=== PATIENT | female | born 1940 | race Caucasian/White ===

== ENCOUNTER 2018-01-01 09:50 | Inpatient (IN) ==
[2017-12-28 15:53] LABS: Appearance,Urine CLEAR; Bilirubin,Urine NEG (NEG); Color,Urine YELLOW; Glucose,Urine (UA) NEGATIVE (NEG); Leukocyte Esterase,Urine NEG /uL (NEG); Protein,Urine NEG (NEG); Urine Blood NEG mg/dL (<0.03); Urobilinogen,Urine NEG (NEG)
[2017-12-28 16:26] LABS: Basophils # (Auto) 0.1 K/mcL (0.0-0.3); Basophils % (Auto) 0.7 % (0.0-2.0); Eosinophils # (Auto) 0.4 K/mcL (0.0-0.7); Eosinophils % (Auto) 4.6 % (0.0-7.0); Granulocytes % (Auto) 56.1 % (38.0-78.0); Lymphocytes # (Auto) 2.2 K/mcL (1.5-4.8); Mean Cell Volume 90.3 fL (80.0-100.0); Mean Corpuscular HGB Conc 33.7 g/dL (31.0-36.0); Mean Corpuscular Hemoglobin 30.4 pg (26.0-34.0); Monocytes # (Auto) 1.1 K/mcL (0.1-0.9); Monocytes % (Auto) 12.6 % (1.0-12.0); Platelet Count 272 K/mcL (140-440); RBC 5.06 M/mcL (4.00-5.20); Red Cell Distribution Width 13.5 % (11.5-14.5)
[2017-12-28 16:33] LABS: Blood Urea Nitrogen 21 mg/dl (8-23)
[~2018-01-01 09:50] MED LIST: ACETAMINOPHEN 500 MG TABLET PO SCH; CELECOXIB 200 MG CAPSULE PO SCH; PREGABALIN 75 MG CAPSULE PO SCH; ceFAZolin 1 GM VIAL IV SCH; oxyCODONE 10 MG TAB.ER.12H PO SCH
[2018-01-01] MEDS ORDERED: NEOSTIGMINE 1 MG/ML VIAL IV ONE (13:50)
[2018-01-01] MEDS ORDERED: PROPOFOL 200 MG/20 ML VIAL IV ONE (13:50)
[2018-01-01] MEDS ORDERED: DEXAMETHASONE 10 MG/ML VIAL IV ONE (13:50)
[2018-01-01] MEDS ORDERED: ROCURONIUM 10 MG/ML ML IV ONE (13:50)
[2018-01-01] MEDS ORDERED: PHENYLEPHRINE 10 MG/ML VIAL IV ONE (13:50)
[2018-01-01] MEDS ORDERED: TRANEXAMIC ACID 1,000 MG/10 ML VIAL IV ONE ×3 (13:50→15:45)
[2018-01-01] MEDS ORDERED: MIDAZOLAM 5 MG/5 ML VIAL IV ONE (13:50)
[2018-01-01] MEDS ORDERED: KETAMINE 100 MG/ML ML IV ONE (13:50)
[2018-01-01] MEDS ORDERED: LIDOCAINE HCL/PF 100 MG/5 ML SYRINGE IV ONE (13:50)
[2018-01-01] MEDS ORDERED: fentaNYL 100 MCG/2 ML VIAL IV ONE (13:50)
[2018-01-01] MEDS ORDERED: GLYCOPYRROLATE 0.2 MG/ML VIAL IV ONE (13:50)
[2018-01-01] MEDS ORDERED: BUPIVACAINE W/EPI 0.5% 50 ML VIAL IJ ONE (13:50)
[2018-01-01] MEDS ORDERED: GENTAMICIN SULFATE 800 MG/20 ML VIAL IR ONE (14:11)
[2018-01-01] MEDS ORDERED: FLUMAZENIL 0.1 MG/ML ML IV PRN (14:58)
[2018-01-01] MEDS ORDERED: LACTATED RINGERS 250 ML IV PRN (14:58)
[2018-01-01] MEDS ORDERED: IPRATROPIUM/ALBUTEROL 3 ML AMPUL.NEB NEB PRN (14:58)
[2018-01-01] MEDS ORDERED: BENZOCAINE/MENTHOL 1 LOZENGE PO PRN ×2 (14:58→15:10)
[2018-01-01] MEDS ORDERED: NALOXONE HCL 0.4 MG/ML VIAL IV PRN (14:58)
[2018-01-01] MEDS ORDERED: ONDANSETRON 4 MG/2 ML VIAL IV PRN ×2 (14:58→15:10)
[2018-01-01] MEDS ORDERED: PROMETHAZINE 25 MG/ML VIAL IV PRN (14:58)
[2018-01-01] MEDS ORDERED: MEPERIDINE 25 MG/ML SYRINGE IV PRN (14:58)
[2018-01-01] MEDS ORDERED: fentaNYL 100 MCG/2 ML VIAL IV PRN (14:58)
[2018-01-01] MEDS ORDERED: diphenhydrAMINE 50 MG/ML VIAL IV PRN (14:58)
[2018-01-01] MEDS ORDERED: LACTATED RINGERS 1,000 ML IV SCH (15:00)
[2018-01-01] MEDS ORDERED: MAGNESIUM HYDROXIDE 30 ML ORAL.SUSP PO PRN (15:10)
[2018-01-01] MEDS ORDERED: HYDROmorphone 2 MG/ML VIAL IV PRN (15:10)
[2018-01-01] MEDS ORDERED: KETOROLAC 30 MG/ML VIAL IV PRN (15:10)
[2018-01-01] MEDS ORDERED: POLYETHYLENE GLYCOL 3350 17 GM PACKET PO PRN (15:10)
[2018-01-01] MEDS ORDERED: FLEETS ADULT ENEMA PR PRN (15:10)
[2018-01-01] MEDS ORDERED: BISACODYL 10 MG SUPP.RECT PR PRN (15:10)
[2018-01-01] MEDS ORDERED: ACETAMINOPHEN 325 MG TABLET PO PRN (15:10)
[2018-01-01] MEDS ORDERED: ALBUTEROL SULFATE 1 PUFF INHALER INH PRN (15:14)
--- NOTE | 2018-01-01 15:18 | Brief Operative Note ---
Date of procedure: 01/01/18 Pre-op diagnosis: left shoulder djd rca Post-op diagnosis: same Procedure: left revers tsa and bicep tenodesis Grafts/Implants: Yes Anesthesia: LUIS FELIPE Surgeon: Patrick Hernandez Manager Completions: Jony Andino Estimated blood loss (cc): 100 Specimens Removed/Pathology: none sent Condition: stable Disposition: PACU
--- NOTE | 2018-01-01 16:03 | Operative Note ---
DATE OF OPERATION: 01/01/2018 PREOPERATIVE DIAGNOSES: Left shoulder rotator cuff arthropathy with severe arthritis of the left shoulder and biceps tendinosis. POSTOPERATIVE DIAGNOSES: Left shoulder rotator cuff arthropathy with severe arthritis of the left shoulder and biceps tendinosis. PROCEDURE: Left reverse total shoulder and biceps tenodesis. SURGEON: Patrick Hernandez M.D. INSURANCE PRODUCER: Jony Andino PA-C. ANESTHESIA: General LMA anesthesia. COMPLICATIONS: None. DESCRIPTION OF PROCEDURE: The patient was brought to the operating room and put to sleep with general LMA anesthesia. Once asleep, the patient had the left shoulder sterilely prepped and draped in the usual sterile fashion after confirming the operative site as the procedure and receiving preoperative antibiotics and tranexamic acid. The patient then had a deltopectoral approach performed. Once done, we then identified the glenohumeral joint, released the subscap and dislocated the humeral head. At this point, we released the remnants of the bicep tendon which was tenodesed to the pectoralis major. Once this was done, we then made our neck cut at 20 degrees of retroversion using the guide from [place]. Once done, I then removed the bony fragment, broached up to the size stem with a longer stem, and then subluxed the humerus posteriorly. We then placed retractors, reamed centrally after 360 degree capsulotomy and removing the labrum and biceps tendon remnant. We reamed up to a 29. We placed a 29 metaglene after reaming to the depth with good bone. A 36 mm central screw gave excellent purchase and then we placed a 36 mm central screw, a 36 superior screw, and a 36 inferior screw. Anteriorly we made a 26 mm screw. All had good purchase. We irrigated thoroughly. We placed a glenosphere with 3 mm of the eccentricity inferiorly and then the humerus was trialed with a standard poly. This seemed to fit a little tight. We countersunk the stem a little more, reamed, and this fit perfectly with 1 mm of play. We irrigated thoroughly, put into place the humeral component and poly. This was reduced easily and irrigated. We then closed the interval after making sure there was no bleeding. There was no cephalic vein bleeding. This was reduced. We then closed the deltopectoral interval with 2-0 Vicryl and closed the skin with 2-0 Vicryl and adhesive closure. A DonJoy sling was fitted and given to the patient. [facility] Job ID: [id number] Doc ID: [id number] Patrick Hernandez MD
--- NOTE | 2018-01-01 16:09 | XRay Report ---
CLINICAL INFORMATION: Postsurgical follow-up TECHNIQUE: AP and Y views of the left shoulder COMPARISON: None. FINDINGS: Status post left reverse shoulder arthroplasty. Alignment is anatomic. IMPRESSION: Status post reverse left shoulder arthroplasty Interpreted and Authenticated by: Rayshawn Joseph 01/01/18
[2018-01-01] MEDS ORDERED: TRANEXAMIC ACID 1,000 MG/10 ML VIAL IV SCH (16:15)
[2018-01-01] MEDS: 0.45 % SODIUM CHLORIDE 1,000 ML IV SCH (16:35)
[2018-01-01] MEDS ORDERED: SIMVASTATIN 10 MG TABLET PO SCH (21:00)
[2018-01-01] MEDS ORDERED: SENNOSIDES 1 TABLET PO SCH (21:00)
[2018-01-01] MEDS ORDERED: SULINDAC 200 MG TABLET PO SCH (21:00)
[2018-01-01] MEDS ORDERED: TEMAZEPAM 15 MG CAPSULE PO PRN (21:00)
[2018-01-01] MEDS: oxyCODONE/APAP 5/325MG TABLET PO PRN (21:12)
[2018-01-01] MEDS: ceFAZolin 1 GM VIAL IV SCH (21:13)
[2018-01-01] MEDS: DOCUSATE SODIUM 100 MG CAPSULE PO SCH (21:13)
[2018-01-01] MEDS: BUDESONIDE INH SCH (21:19)
[2018-01-01] MEDS: FORMOTEROL FUMARATE INH SCH (21:19)
[2018-01-01] MEDS: 0.9 % SODIUM CHLORIDE 10 ML SYRINGE IV SCH (22:02)
[2018-01-02] MEDS: oxyCODONE/APAP 5/325MG TABLET PO PRN ×2 (00:18→04:06)
[2018-01-02] MEDS: 0.45 % SODIUM CHLORIDE 1,000 ML IV SCH (02:21)
[2018-01-02] MEDS: 0.9 % SODIUM CHLORIDE 10 ML SYRINGE IV SCH (05:17)
[2018-01-02] MEDS: ceFAZolin 1 GM VIAL IV SCH (05:17)
[2018-01-02] MEDS ORDERED: LEVOTHYROXINE 100 MCG TABLET PO SCH (07:30)
--- NOTE | 2018-01-02 07:45 | Orthopedic Progress Note ---
Subjective Patient information: Note initiated : 01/02/18 at 7:44 am Service Date, if different from initiated Date: [] Patient: Tonie Segovia 77 y/o F admitted on 01/01/18 for Left Reverse Total Shoulder Arthroplasty with . Chief Complaint: [Pt is stable this morning on post operative day 1 without any significant concerns or complaints. Patients vital signs have remained stable. Patients dressing is dry and is grossly instact from a neurovascular and motor standpoint. Patients 10 point ROS is otherwise negative. ] Objective Vital signs: Vital Signs Temp Pulse Resp BP Pulse Ox 01/02/18 07:39 97.2 F 20 109/62 93 01/02/18 04:00 98.7 F 80 16 121/62 96 01/01/18 23:44 98.5 F 75 16 107/66 93 01/01/18 22:01 96 01/01/18 22:00 3 L 01/01/18 21:50 97 01/01/18 21:32 90 01/01/18 21:30 88 L 01/01/18 20:34 97.7 F 75 16 133/77 94 01/01/18 18:23 71 107/38 94 01/01/18 17:52 74 117/65 93 01/01/18 17:21 67 109/67 91 01/01/18 17:06 67 109/67 92 01/01/18 16:10 96 01/01/18 16:01 97.3 F 75 21 99/48 95 01/01/18 15:52 97.1 F 76 16 109/48 92 01/01/18 15:37 97.3 F 68 18 111/47 100 01/01/18 15:32 68 18 99/62 98 01/01/18 15:27 72 12 113/60 93 01/01/18 15:22 97.2 F 53 L 23 H 72/33 87 L 01/01/18 12:28 98.3 F 62 16 112/70 95 01/01/18 10:18 98 F 18 124/76 95 Intake and Output 01/01/18 01/02/18 01/02/18 21:59 05:59 13:59 Intake Total 2940 / 2940 1927 / 1927 240 / 240 Output Total 401 / 401 450 / 450 400 / 400 Balance 2539 / 2539 1477 / 1477 -160 / -160 Intake: IV 977 / 977 Sodium Chloride 0.45% 1,000 ml 977 / 977 @ 100 mls/hr IV .Q10H [facility] Rx#: [id number] Oral 740 / 740 950 / 950 240 / 240 IV - Manual Only 2200 / 2200 Output: Void Amount 100 / 100 450 / 450 400 / 400 # of times incontinent of urine 1 / 1 Estimated Blood Loss 300 / 300 Other: Meal Dinner Percent of Meal Consumed 25% Feeding Ability Independent # Voids 1 1 Weight 225 lb Intake & Output: Intake & Output 01/01/18 01/02/18 01/02/18 21:59 05:59 13:59 Intake Total 2940 / 2940 1927 / 1927 240 / 240 Output Total 401 / 401 450 / 450 400 / 400 Balance 2539 / 2539 1477 / 1477 -160 / -160 Weight 225 lb Intake: IV 977 / 977 Sodium Chloride 0.45% 1,000 ml 977 / 977 @ 100 mls/hr IV .Q10H [facility] Rx#: [id number] Oral 740 / 740 950 / 950 240 / 240 IV - Manual Only 0 / 0 Output: Void Amount 100 / 100 450 / 450 400 / 400 # of times incontinent of urine 1 / 1 Estimated Blood Loss 300 / 300 Other: Meal Dinner Percent of Meal Consumed 25% Feeding Ability Independent # Voids 1 1 Incision: Yes healing Incision clean and dry: Yes Dressing: Yes clean Weight bearing status: full Neurological exam IM: Yes motor sensory intact, Yes neurovascular intact Extremities exam IM: Yes neurovascular intact - Labs CBC & BMP: 12/28/17 14:42 12/28/17 14:42 Labs: Orthopedic Labs 12/28/17 14:42 PT 12.9 INR 1.0 APTT 41 H 12/28/17 14:42 Hgb 15.4 H Hct 45.6 Assessment and Plan (1) Hx of total shoulder replacement The patient has been educated regarding dressing care, Physical Therapy recommendations, home exercises, restrictions, and follow up appointments. The patient has had all necessary DME prescribed. The patient has remained stable during their hospital course. The patient was discharge with a stable exam. Leave Dermabond patch intact until followup Status: Acute
--- NOTE | 2018-01-02 07:47 | Discharge Summary ---
Ortho Discharge - TSA - Patient Instructions Diet: Regular Diet Activity: activity as tolerated, weight bearing as tolerated Total Shoulder Protocol: Leave immobilizer in place except for bathing and ROM. Abduction pillow. Continue to wear sling until seen by physician. [place]man Pendulum : These exercises use momentum produced by your body to move your shoulder joint. Bend your knees and shift your weight to your front leg, then back, allowing your arm to swing in the same directions. Using the same technique, alternately shift your weight between your right and left legs, allowing your arm to swing from side to side. These exercises are also performed in counterclockwise and clockwise circular motions. Typically these exercises are performed several times per day, for a set number repetitions or minutes, such as 20 times in a row or 5 minutes at a time. Dressing Care: May shower in 2 days - Problem Maintenance (1) Hx of total shoulder replacement Status: Acute - Follow Up Plan Follow Up Appointments: Jony Andino PA-C [Physician [employer]] - 01/18/18 2:20 pm Disposition: Home, Self-Care Prognosis: Good Rehab Potential: Good I certify that the patient requires SNF services: No Overall status at discharge: patient is progressing back to baseline - Orders For Discharge Prescriptions: Docusate Sodium [Colace] 100 mg PO BID #60 cap HYDROcodone/APAP 10/325MG [[place] 10-325Mg] 1 - 2 tab PO Q4H PRN #75 tab PRN Reason: Pain
[2018-01-02] MEDS ORDERED: TRIAMTERENE/HYDROCHLOROTHIAZID 1 TABLET PO SCH (09:00)
[2018-01-02] MEDS ORDERED: LUTEIN PO SCH (09:00)
[2018-01-02] MEDS ORDERED: DILTIAZEM 180 MG CAP.XL.24H PO SCH (09:00)
[2018-01-02] MEDS ORDERED: ASPIRIN 325 MG ENTERIC COATED TABLET PO SCH (09:00)
[2018-01-02] MEDS ORDERED: amLODIPine 5 MG TABLET PO SCH (09:00)
[2018-01-02] MEDS ORDERED: SERTRALINE 100 MG TABLET PO SCH (09:00)
[2018-01-02] MEDS ORDERED: MULTIVIT,THER IRON,CA,FA & MIN 1 TABLET PO SCH (09:00)
[2018-01-02] MEDS ORDERED: HYDROcodone/APAP 10/325MG TABLET PO PRN (09:02)
[2018-01-02] MEDS: DOCUSATE SODIUM 100 MG CAPSULE PO SCH (09:37)
[2018-01-02] MEDS: FORMOTEROL FUMARATE INH SCH (10:23)
[2018-01-02] MEDS: BUDESONIDE INH SCH (10:23)
== END 2018-01-02 11:10 | disposition home or self-care (01) | DRG 483 ==
LOC: MEDSUR 09:50
PROVIDERS: ADMIT Orthopaedic Surgery; ATTEND Orthopaedic Surgery